=== PATIENT | female | born 1970 | race Two or more races ===

== ENCOUNTER 2017-03-25 08:05 | Emergency (ER) | payer MEDICAID ==
[~2017-03-25] VITALS: Ht 160 cm; Wt 70.8 kg
[2017-03-25 08:15] VITALS: BP 125/54
[2017-03-25 08:28] LABS: Urine Bilirubin Negative (Negative); Urine Blood Negative /uL (Negative); Urine Color Yellow (Yellow); Urine Glucose Normal (Normal); Urine Ketone Negative (Negative); Urine Mucus FEW (None Seen); Urine Nitrite Negative (Negative); Urine RBC 1 /hpf (0 - 4); Urine Squamous Epithelial Cell FEW /hpf (<5); Urine Urobilinogen Normal (Negative)
== END 2017-03-25 09:24 | disposition home or self-care (01) ==
LOC: ER 08:05
DX: S39.012A Strain of muscle, fascia and tendon of lower back, initial encounter (principal); N39.0 Urinary tract infection, site not specified; X58.XXXA Exposure to other specified factors, initial encounter; Y93.89 Activity, other specified; Y92.89 Other specified places as the place of occurrence of the external cause; Y99.8 Other external cause status
CPT/HCPCS: 81001; 81025